=== PATIENT | female | born 1940 | race Caucasian/White ===

== ENCOUNTER 2021-03-19 01:55 | Emergency (ER) | payer MEDICARE ==
[2021-03-19] MEDS ORDERED: Orphenadrine 100 MG Tab.ER PO STA (02:25)
== END 2021-03-19 07:45 ==
LOC: JD.ED 01:55
DX: S32.019A Unspecified fracture of first lumbar vertebra, initial encounter for closed fracture (principal); F17.210 Nicotine dependence, cigarettes, uncomplicated; K86.89 Other specified diseases of pancreas; E66.9 Obesity, unspecified; Z20.822 Contact with and (suspected) exposure to COVID-19; W19.XXXA Unspecified fall, initial encounter
CPT/HCPCS: 36415; 72131; 72131-26; 74177; 74177-26; 80053; 83690; 85007; 85027; 99285-25; A9270-GY; U0002

== ENCOUNTER 2023-01-27 16:14 | Inpatient (IN) | payer MEDICARE, BC ==
[2023-01-27 17:16] LABS: BASOPHILS ABSOLUTE AUTO 0.1 K/mm3 (0.0-0.2); BASOPHILS PERCENT AUTO 0.3 % (0.0-1.0); EOSINOPHILS ABSOLUTE AUTO 0.2 K/mm3 (0.0-0.4); EOSINOPHILS PERCENT AUTO 0.5 % (0.0-6.0); HEMATOCRIT 37.7 % (37.0-47.0); HEMOGLOBIN 12.6 gm/dl (12.0-16.0); IMMATURE GRAN ABSOLUTE AUTO 0.27 K/mm3 (0.00-0.05); IMMATURE GRAN PERCENT AUTO 0.9 % (0.0-0.4); LYMPHOCYTES ABSOLUTE AUTO 0.7 K/mm3 (1.0-4.8); LYMPHOCYTES PERCENT AUTO 2.3 % (24.0-44.0); MEAN CORPUSCULAR HEMOGLOBIN 29.3 pg (28.0-32.0); MEAN CORPUSCULAR HGB CONC 33.4 g/dl (32.0-36.0); MEAN CORPUSCULAR VOLUME 87.7 fl (83.0-99.0); MEAN PLATELET VOLUME 10.6 fl (9.4-12.3); MONOCYTES ABSOLUTE AUTO 2.4 K/mm3 (0.0-0.8); MONOCYTES PERCENT AUTO 7.5 % (0.0-8.0); NEUTROPHILS PERCENT AUTO 88.5 % (41.0-71.0); PLATELET COUNT,PLT 267 K/mm3 (150-400); WHITE BLOOD CELL COUNT,WBC 31.54 K/mm3 (3.9-11.3)
[2023-01-27] MEDS ORDERED: Lactated Ringers 1,000 ML IV SCH (17:30)
[2023-01-27] MEDS: Sodium Chloride 0.9% 10 ML Syringe FLUSH PRN (17:44)
[2023-01-27 17:49] LABS: CORONAVIRUS COVID-19 NAA NEGATIVE (NEGATIVE); INFLUENZA A NAA NEGATIVE (NEGATIVE)
[2023-01-27 17:52] LABS: A/G RATIO 0.9 (1-2); ALBUMIN 3.5 g/dl (3.4-5.0); ANION GAP 15.4 (5-15); BILIRUBIN TOTAL 0.6 mg/dL (0.2-1.0); BUN/CREATININE RATIO 24.4 (14-18); CALCIUM 9.3 mg/dL (8.5-10.1); CREATININE 0.9 mg/dL (0.55-1.02); EST CRCL DRUG DOSING (CG) 45.12 mL/min; POTASSIUM,K 4.4 mEq/L (3.5-5.1); PROTEIN TOTAL,TP 7.5 g/dl (6.4-8.2); TSH 1.674 uIU/mL (0.358-3.74)
[2023-01-27 18:22] LABS: LACTIC ACID 0.6 mmol/L (0.4-2.0)
[2023-01-27] MEDS ORDERED: Albuterol/Ipratropium 3.0-0.5 MG/3 ML Neb Soln NEB ONE (19:20)
[2023-01-27] MEDS ORDERED: Piperacillin/Tazobactam 4.5 GM in Sodium Chloride 0.9% 100 ML IV ONE (19:48)
[2023-01-27] MEDS ORDERED: Ondansetron 4 MG Tab.DIS PO PRN (19:56)
[2023-01-27] MEDS ORDERED: Acetaminophen 325 MG Tab PO PRN (19:56)
[2023-01-27] MEDS ORDERED: Ondansetron 4 MG/2 ML SDV IV PRN (19:56)
[2023-01-27] MEDS ORDERED: Docusate Sodium 100 MG Cap PO PRN (19:56)
[2023-01-27] MEDS ORDERED: Albuterol/Ipratropium 3.0-0.5 MG/3 ML Neb Soln NEB PRN (19:56)
[2023-01-27 20:26] LABS: APPEARANCE,URINE SLT CLOUDY (Clear); BILIRUBIN,URINE NEGATIVE (Negative); COLOR,URINE YELLOW (Yellow); GLUCOSE,URINE NEGATIVE (Negative); KETONES,URINE NEGATIVE (Negative); LEUKOCYTE ESTERASE,URINE 1+ (Negative); NITRITE,URINE NEGATIVE (Negative); OCCULT BLOOD,URINE 1+ (Negative); PH,URINE 6.5 (5.0-8.0); PROTEIN,URINE NEGATIVE (Negative); UROBILINOGEN,URINE 0.2 (0.2-1.0)
[2023-01-27 20:43] LABS: BACTERIA,URINE MANY /hpf (FEW); MUCUS,URINE FEW /hpf (FEW); SQUAMOUS EPITHELIAL CELLS,UR 0-5 /hpf (0-5); WBC,URINE 20-30 /hpf (0-5)
[2023-01-27] MEDS: Lactated Ringers 1,000 ML IV SCH (21:18)
[2023-01-27] MEDS: Heparin Sodium 5,000 Units/ML Vial SUBCUT SCH (21:32)
[2023-01-27] MEDS: cefTRIAXone 2 GM in Sodium Chloride 0.9% 100 ML IV SCH (21:32)
[2023-01-27] MEDS: Azithromycin 500 MG in Sodium Chloride 0.9% 250 ML IV SCH (22:06)
[2023-01-28] MEDS: Lactated Ringers 1,000 ML IV SCH ×2 (03:29→16:24)
[2023-01-28] MEDS: Heparin Sodium 5,000 Units/ML Vial SUBCUT SCH ×3 (03:30→20:21)
[2023-01-28 04:47] LABS: BASOPHILS ABSOLUTE AUTO 0.1 K/mm3 (0.0-0.2); BASOPHILS PERCENT AUTO 0.3 % (0.0-1.0); EOSINOPHILS ABSOLUTE AUTO 0.2 K/mm3 (0.0-0.4); EOSINOPHILS PERCENT AUTO 0.7 % (0.0-6.0); HEMATOCRIT 31.9 % (37.0-47.0); HEMOGLOBIN 10.6 gm/dl (12.0-16.0); IMMATURE GRAN ABSOLUTE AUTO 0.27 K/mm3 (0.00-0.05); IMMATURE GRAN PERCENT AUTO 0.9 % (0.0-0.4); LYMPHOCYTES PERCENT AUTO 6.4 % (24.0-44.0); MEAN CORPUSCULAR HEMOGLOBIN 29.7 pg (28.0-32.0); MEAN CORPUSCULAR HGB CONC 33.2 g/dl (32.0-36.0); MEAN CORPUSCULAR VOLUME 89.4 fl (83.0-99.0); MEAN PLATELET VOLUME 10.4 fl (9.4-12.3); MONOCYTES ABSOLUTE AUTO 2.3 K/mm3 (0.0-0.8); MONOCYTES PERCENT AUTO 7.5 % (0.0-8.0); NEUTROPHILS ABSOLUTE AUTO 25.8 K/mm3 (1.8-7.7); NEUTROPHILS PERCENT AUTO 84.2 % (41.0-71.0); PLATELET COUNT,PLT 208 K/mm3 (150-400); RED BLOOD CELL COUNT 3.57 M/mm3 (4.10-5.30); WHITE BLOOD CELL COUNT,WBC 30.59 K/mm3 (3.9-11.3)
[2023-01-28 05:05] LABS: ANION GAP 12.1 (5-15); BUN/CREATININE RATIO 23.8 (14-18); CALCIUM 8.3 mg/dL (8.5-10.1); CREATININE 0.8 mg/dL (0.55-1.02); EST CRCL DRUG DOSING (CG) 50.75 mL/min; POTASSIUM,K 4.1 mEq/L (3.5-5.1)
[2023-01-28 05:51] LABS: SLIDE REVIEW ABNORMAL SMEAR
[2023-01-28] MEDS: Tamsulosin 0.4 MG Cap.ER PO SCH ×2 (08:44→20:21)
[2023-01-28] MEDS: Aspirin 81 MG Tab.Chew PO SCH (08:44)
[2023-01-28] MEDS: amLODIPine 10 MG Tab PO SCH (08:44)
[2023-01-28] MEDS: CARIPRAZINE HCL 6 MG PO SCH (11:10)
[2023-01-28] MEDS: cefTRIAXone 2 GM in Sodium Chloride 0.9% 100 ML IV SCH (20:19)
[2023-01-28] MEDS: Azithromycin 500 MG in Sodium Chloride 0.9% 250 ML IV SCH (20:45)
[2023-01-28] MEDS: Sodium Chloride 0.9% 10 ML Syringe FLUSH PRN (20:52)
[2023-01-29] MEDS: Heparin Sodium 5,000 Units/ML Vial SUBCUT SCH ×3 (03:59→22:26)
[2023-01-29] MEDS: Levothyroxine 50 MCG Tab PO SCH (06:02)
[2023-01-29] MEDS: Lactated Ringers 1,000 ML IV SCH (06:03)
[2023-01-29 06:33] LABS: BASOPHILS ABSOLUTE AUTO 0.1 K/mm3 (0.0-0.2); BASOPHILS PERCENT AUTO 0.5 % (0.0-1.0); EOSINOPHILS ABSOLUTE AUTO 0.4 K/mm3 (0.0-0.4); EOSINOPHILS PERCENT AUTO 3.6 % (0.0-6.0); HEMATOCRIT 35.8 % (37.0-47.0); HEMOGLOBIN 11.9 gm/dl (12.0-16.0); IMMATURE GRAN ABSOLUTE AUTO 0.07 K/mm3 (0.00-0.05); IMMATURE GRAN PERCENT AUTO 0.6 % (0.0-0.4); LYMPHOCYTES ABSOLUTE AUTO 2.3 K/mm3 (1.0-4.8); LYMPHOCYTES PERCENT AUTO 20.6 % (24.0-44.0); MEAN CORPUSCULAR HEMOGLOBIN 29.7 pg (28.0-32.0); MEAN CORPUSCULAR HGB CONC 33.2 g/dl (32.0-36.0); MEAN CORPUSCULAR VOLUME 89.3 fl (83.0-99.0); MONOCYTES ABSOLUTE AUTO 0.7 K/mm3 (0.0-0.8); MONOCYTES PERCENT AUTO 6.3 % (0.0-8.0); NEUTROPHILS ABSOLUTE AUTO 7.7 K/mm3 (1.8-7.7); NEUTROPHILS PERCENT AUTO 68.4 % (41.0-71.0); PLATELET COUNT,PLT 225 K/mm3 (150-400); RED BLOOD CELL COUNT 4.01 M/mm3 (4.10-5.30); WHITE BLOOD CELL COUNT,WBC 11.31 K/mm3 (3.9-11.3)
[2023-01-29 06:36] LABS: ANION GAP 10.5 (5-15); BUN/CREATININE RATIO 15.7 (14-18); CALCIUM 8.9 mg/dL (8.5-10.1); CREATININE 0.7 mg/dL (0.55-1.02); EST CRCL DRUG DOSING (CG) 58.01 mL/min
[2023-01-29 06:58] LABS: POTASSIUM,K 4.5 mEq/L (3.5-5.1)
[2023-01-29 07:22] LABS: SLIDE REVIEW ABNORMAL SMEAR
[2023-01-29] MEDS: Tamsulosin 0.4 MG Cap.ER PO SCH ×2 (08:18→22:22)
[2023-01-29] MEDS: Aspirin 81 MG Tab.Chew PO SCH (08:18)
[2023-01-29] MEDS: amLODIPine 10 MG Tab PO SCH (08:18)
[2023-01-29] MEDS: CARIPRAZINE HCL 6 MG PO SCH (09:25)
[2023-01-29] MEDS ORDERED: Lactated Ringers 1,000 ML IV SCH (18:15)
[2023-01-29] MEDS: cefTRIAXone 2 GM in Sodium Chloride 0.9% 100 ML IV SCH (22:18)
[2023-01-29] MEDS: Azithromycin 500 MG in Sodium Chloride 0.9% 250 ML IV SCH (22:55)
[2023-01-30] MEDS: Heparin Sodium 5,000 Units/ML Vial SUBCUT SCH (05:08)
[2023-01-30] MEDS: Levothyroxine 50 MCG Tab PO SCH (05:08)
[2023-01-30 05:27] LABS: BASOPHILS ABSOLUTE AUTO 0.1 K/mm3 (0.0-0.2); BASOPHILS PERCENT AUTO 0.6 % (0.0-1.0); EOSINOPHILS ABSOLUTE AUTO 0.4 K/mm3 (0.0-0.4); EOSINOPHILS PERCENT AUTO 4.7 % (0.0-6.0); HEMOGLOBIN 12.4 gm/dl (12.0-16.0); IMMATURE GRAN ABSOLUTE AUTO 0.05 K/mm3 (0.00-0.05); IMMATURE GRAN PERCENT AUTO 0.6 % (0.0-0.4); LYMPHOCYTES ABSOLUTE AUTO 1.6 K/mm3 (1.0-4.8); LYMPHOCYTES PERCENT AUTO 19.3 % (24.0-44.0); MEAN CORPUSCULAR HEMOGLOBIN 29.8 pg (28.0-32.0); MEAN CORPUSCULAR HGB CONC 33.5 g/dl (32.0-36.0); MEAN CORPUSCULAR VOLUME 88.9 fl (83.0-99.0); MEAN PLATELET VOLUME 10.4 fl (9.4-12.3); MONOCYTES ABSOLUTE AUTO 0.6 K/mm3 (0.0-0.8); MONOCYTES PERCENT AUTO 6.9 % (0.0-8.0); NEUTROPHILS ABSOLUTE AUTO 5.8 K/mm3 (1.8-7.7); NEUTROPHILS PERCENT AUTO 67.9 % (41.0-71.0); PLATELET COUNT,PLT 243 K/mm3 (150-400); RED BLOOD CELL COUNT 4.16 M/mm3 (4.10-5.30); WHITE BLOOD CELL COUNT,WBC 8.46 K/mm3 (3.9-11.3)
[2023-01-30 05:33] LABS: BUN/CREATININE RATIO 12.9 (14-18); CALCIUM 9.3 mg/dL (8.5-10.1); CREATININE 0.7 mg/dL (0.55-1.02); EST CRCL DRUG DOSING (CG) 58.01 mL/min
[2023-01-30] MEDS: Tamsulosin 0.4 MG Cap.ER PO SCH (08:42)
[2023-01-30] MEDS: CARIPRAZINE HCL 6 MG PO SCH (08:42)
[2023-01-30] MEDS: amLODIPine 10 MG Tab PO SCH (08:43)
[2023-01-30] MEDS: Aspirin 81 MG Tab.Chew PO SCH (08:43)
== END 2023-01-30 11:57 | disposition home or self-care (01) | DRG 871 ==
LOC: JD.ED 16:14 → JD.MS 19:54
PROVIDERS: ADMIT Hospitalist; ATTEND Hospitalist
DX: A41.9 Sepsis, unspecified organism (principal); J18.9 Pneumonia, unspecified organism; J96.21 Acute and chronic respiratory failure with hypoxia; I10 Essential (primary) hypertension; K59.09 Other constipation; K21.9 Gastro-esophageal reflux disease without esophagitis; G89.29 Other chronic pain; M54.9 Dorsalgia, unspecified; F20.9 Schizophrenia, unspecified; R82.71 Bacteriuria; F31.9 Bipolar disorder, unspecified; G47.00 Insomnia, unspecified; E66.9 Obesity, unspecified; Z87.891 Personal history of nicotine dependence; Z11.52 Encounter for screening for COVID-19; Z79.82 Long term (current) use of aspirin; Z79.890 Hormone replacement therapy; Z79.899 Other long term (current) drug therapy; Z68.28 Body mass index [BMI] 28.0-28.9, adult; Z20.822 Contact with and (suspected) exposure to COVID-19
CPT/HCPCS: 0240U; 36415; 71045; 71250; 80048; 80053; 81001; 83605; 83880; 84443; 85025; 87040; 87086; 87641; 93005; 94640; 94667; 94668; 94760; 94761; 97110; 97116; 97161; 93010; 99222; 99232; 99239; 99282; A9270-GY; J0456; J0696; J1644; J2543; J3490; J7050; J7120; J7620-GY